=== PATIENT | male | born 1950 | race Caucasian/White ===

== ENCOUNTER 2018-08-16 11:51 | Emergency (ER) | payer MEDICARE, MEDICAID ==
[~2018-08-16] VITALS: Ht 175.3 cm; Wt 71.0 kg
[2018-08-16 12:01] VITALS: BP 137/92
[2018-08-16] MEDS ORDERED: CLIN150C8 PO (13:05)
== END 2018-08-16 13:18 | disposition home or self-care (01) ==
LOC: ER 11:52
DX: K13.79 Other lesions of oral mucosa (principal); L08.89 Other specified local infections of the skin and subcutaneous tissue; Z86.73 Personal history of transient ischemic attack (TIA), and cerebral infarction without residual deficits
CPT/HCPCS: 99283